=== PATIENT | male | born 2000 | race Hispanic/Latino ===

== ENCOUNTER 2020-05-30 00:48 | Emergency (ER) | payer OTHER, SELFPAY ==
[2020-05-30 02:31] LABS: Urine Blood NEGATIVE (NEG); Urine Glucose NEGATIVE (NEG); Urine Protein NEGATIVE (NEG); Urine Specific Gravity >1.030 (1.005-1.030)
[2020-05-30] MEDS ORDERED: NA CHLORIDE 0.9% 1,000 ML ONE (02:31)
[2020-05-30] MEDS ORDERED: FOLIC ACID 5 MG/ML VIAL ONE (02:32)
[2020-05-30 02:36] LABS: Protime INR 0.94
[2020-05-30 02:37] LABS: Absolute Lymphocytes (CBC) 1.3 K/uL (0.7-4.9); Basophils % 0.2 % (0-1.3); MPV 9.3 fL (7.6-11.3); RBC Red Blood Cell Count 5.06 M/uL (4.33-5.43)
[2020-05-30 02:52] LABS: ALT/SGPT 17 U/L (12-78); AST/SGOT 17 U/L (15-37); Albumin 4.1 g/dL (3.4-5.0); Alkaline Phosphatase 90 U/L (45-117); BUN Blood Urea Nitrogen 14 mg/dL (7-18); Bicarbonate 29 mmol/L (21-32); Bilirubin Direct 0.2 mg/dL (0-0.2); Bilirubin Total 0.5 mg/dL (0.2-1.0); Glucose Level 113 mg/dL (74-106); Magnesium 1.8 mg/dL (1.8-2.4); NT PRO-BNP 25 pg/mL (<125); Potassium 3.5 mmol/L (3.5-5.1); Protein, Total 7.5 g/dL (6.4-8.2); Sodium Level 139 mmol/L (136-145); Troponin (Emerg Dept Use Only) < 0.02 ng/mL (0.0-0.045)
[2020-05-30 02:53] LABS: C-Reactive Protein < 2.90 mg/L (<3.00)
[2020-05-30 03:21] LABS: Barbiturates NEGATIVE (NEGATIVE); Benzodiazepines NEGATIVE (NEGATIVE); Cocaine NEGATIVE (NEGATIVE); METHAMPHETAM NEGATIVE (NEGATIVE); Methadone NEGATIVE (NEGATIVE); Opiates NEGATIVE (NEGATIVE); Phencyclidine NEGATIVE (NEGATIVE); THC Cannibis POSITIVE (NEGATIVE)
--- NOTE | 2020-05-30 03:22 | EDPHYS ---
Physician Documentation [facility] Name: Tucker Serrano Age: 19 yrs Sex: Male : 2000 Arrival Date: 05/30/2020 Time: 00:49 Bed 2 Private MD: SARAHI Physician Andrez Graves HPI: 05/30 01:32 This 19 yrs old Male presents to ER via Wheelchair with complaints of Numbness andrew Of Arm, Shortness Of Breath. 01:32 The patient or guardian complains of left side numb. The complaints affect the left andrew bicep, dorsal aspect of left forearm, left tricep and palmar aspect of left forearm. Context: The problem was sustained at an unknown location. Onset: The symptoms/episode began/occurred 2 hour(s) ago. Treatment prior to arrival includes: no previous treatment. Modifying factors: The symptoms are alleviated by nothing. the symptoms are aggravated by nothing. Associated signs and symptoms: The patient has no apparent associated signs or symptoms. Severity of symptoms: At their worst the symptoms were mild, in the emergency department the symptoms are unchanged. The patient has not experienced similar symptoms in the past. Historical: - Allergies: 01:19 No Known Allergies; dm5 - Home Meds: 01:19 None [Active]; dm5 - PMHx: :19 possibly depression and anxiety but not diagnosed; dm5 - PSHx: :19 None; dm5 - Family history:: not pertinent. ROS: 01:32 Constitutional: Negative for fever, chills, and weight loss, Eyes: Negative for injury, andrew pain, redness, and discharge, ENT: Negative for injury, pain, and discharge, Neck: Negative for injury, pain, and swelling, Cardiovascular: Negative for chest pain, palpitations, and edema, Respiratory: Negative for shortness of breath, cough, wheezing, and pleuritic chest pain, Abdomen/GI: Negative for abdominal pain, nausea, vomiting, diarrhea, and constipation, Back: Negative for injury and pain, : Negative for injury, bleeding, discharge, and swelling, MS/Extremity: Negative for injury and deformity, Skin: Negative for injury, rash, and discoloration, Psych: Negative for depression, anxiety, suicide ideation, homicidal ideation, and hallucinations, Allergy/Immunology: Negative for hives, rash, and allergies, Endocrine: Negative for neck swelling, polydipsia, polyuria, polyphagia, and marked weight changes, Hematologic/Lymphatic: Negative for swollen nodes, abnormal bleeding, and unusual bruising. 01:32 Neuro: Positive for numbness, of the left arm and left leg. Exam: :32 Constitutional: This is a well developed, well nourished patient who is awake, alert, andrew and in no acute distress. Head/Face: Normocephalic, atraumatic. Eyes: Pupils equal round and reactive to light, extra-ocular motions intact. Lids and lashes normal. Conjunctiva and sclera are non-icteric and not injected. Cornea within normal limits. Periorbital areas with no swelling, redness, or edema. ENT: Nares patent. No nasal discharge, no septal abnormalities noted. Tympanic membranes are normal and external auditory canals are clear. Oropharynx with no redness, swelling, or masses, exudates, or evidence of obstruction, uvula midline. Mucous membranes moist. Neck: Trachea midline, no thyromegaly or masses palpated, and no cervical lymphadenopathy. Supple, full range of motion without nuchal rigidity, or vertebral point tenderness. No Meningismus. Chest/axilla: Normal chest wall appearance and motion. Nontender with no deformity. No lesions are appreciated. Cardiovascular: Regular rate and rhythm with a normal S1 and S2. No gallops, murmurs, or rubs. Normal PMI, no JVD. No pulse deficits. Respiratory: Lungs have equal breath sounds bilaterally, clear to auscultation and percussion. No rales, rhonchi or wheezes noted. No increased work of breathing, no retractions or nasal flaring. Abdomen/GI: Soft, non-tender, with normal bowel sounds. No distension or tympany. No guarding or rebound. No evidence of tenderness throughout. Back: No spinal tenderness. No costovertebral tenderness. Full range of motion. Male : Normal genitalia with no discharge or lesions. Skin: Warm, dry with normal turgor. Normal color with no rashes, no lesions, and no evidence of cellulitis. MS/ Extremity: Pulses equal, no cyanosis. Neurovascular intact. Full, normal range of motion. Psych: Awake, alert, with orientation to person, place and time. Behavior, mood, and affect are within normal limits. 01:32 Neuro: Orientation: is normal, appropriate for stated age, no acute changes, Mentation: is normal, appropriate for stated age, no acute changes, Memory: is normal, appropriate for stated age, no acute changes, Cranial nerves: grossly normal, is grossly normal based on the patient's age, no acute changes, Cerebellar function: is grossly normal, is grossly normal based on the patient's age, no acute changes, Motor: is normal, is grossly normal based on the patient's age, Sensation: numbness, that is mild, of the left arm and left leg, Gait: not tested. Deep tendon reflexes are 2+ (normal) in the bilateral brachioradialis, bicep, tricep and patellar and Achilles tendons, Babinski testing is normal. 01:59 ECG was reviewed by the Attending Physician. [facility] Vital Signs: 01:16 BP 120 / 68; Pulse 96; Resp 22; Temp 98.5(TE); Pulse Ox 100% on R/A; Weight 63.5 kg dm5 (R); Height 5 ft. 10 in. (177.80 cm); Pain 0/10; 02:30 BP 125 / 78; Pulse 66; Resp 16; Pulse Ox 100% on R/A; jb4 03:45 BP 112 / 65; Pulse 91; Resp 16; Pulse Ox 100% on R/A; jb4 01:16 Body Mass Index 20.09 (63.50 kg, 177.80 cm) dm5 NIH Stroke Scale Scores: 01:32 NIHSS Score: 1 andrew MDM: 01:21 Patient medically screened. [facility] 01:35 Data reviewed: vital signs, nurses notes, lab test result(s), EKG, radiologic studies, [facility] CT scan, plain films. Data interpreted: monitoring engineer: rate is 96 beats/min, rhythm is regular, Pulse oximetry: on room air. Test interpretation: by ED physician or midlevel provider: ECG, plain radiologic studies. Counseling: I had a detailed discussion with the patient and/or guardian regarding: the historical points, exam findings, and any diagnostic results supporting the discharge/admit diagnosis, lab results, radiology results, the need for outpatient follow up, for definitive care, a family practitioner, a neurologist. 05/30 01:32 Order name: Basic Metabolic Panel [facility] 05/30 01:32 Order name: CBC with Diff [facility] 05/30 01:32 Order name: LFT's [facility] 05/30 01:32 Order name: Magnesium [facility] 05/30 01:32 Order name: NT PRO-BNP; Complete Time: 03:09 [facility] 05/30 01:32 Order name: PT-INR; Complete Time: 03:09 [facility] 05/30 01:32 Order name: Troponin (emerg Dept Use Only); Complete Time: 03:09 [facility] 05/30 01:32 Order name: UDS [facility] 05/30 01:32 Order name: Sed Rate; Complete Time: 03:19 [facility] 05/30 01:32 Order name: CRP; Complete Time: 03:09 [facility] 05/30 01:32 Order name: Basic Metabolic Panel; Complete Time: 03:09 [facility] 05/30 01:32 Order name: CBC with Automated Diff; Complete Time: 03:19 [facility] 05/30 01:32 Order name: Liver (Hepatic) Function; Complete Time: 03:09 [facility] 05/30 01:32 Order name: Magnesium; Complete Time: 03:09 [facility] 05/30 01:32 Order name: XRAY Chest (1 view) [facility] 05/30 01:32 Order name: EKG; Complete Time: 01:33 [facility] 05/30 01:32 Order name: Cardiac monitoring; Complete Time: 02:12 [facility] 05/30 01:32 Order name: EKG - Nurse/Tech; Complete Time: 02:12 [facility] 05/30 01:32 Order name: IV Saline Lock; Complete Time: 02:12 [facility] 05/30 01:32 Order name: Labs collected and sent; Complete Time: 02:12 [facility] 05/30 01:32 Order name: O2 Per Protocol; Complete Time: 02:12 [facility] 05/30 01:32 Order name: O2 Sat Monitoring; Complete Time: 02:12 [facility] 05/30 01:32 Order name: CT Head Brain wo Cont [facility] 05/30 01:32 Order name: CT Head Angio [facility] 05/30 02:00 Order name: CT Neck Angio [facility] 05/30 02:26 Order name: Urine Dipstick--Ancillary (enter results); Complete Time: 02:42 [facility] 05/30 03:38 Order name: CREATININE WHOLE BLOOD EDMS EC:59 Rate is 75 beats/min. Rhythm is regular. QRS [place] is Normal. [place] interval is normal. QRS andrew interval is normal. QT interval is normal. No Q waves. T waves are Normal. No ST changes noted. Clinical impression: Normal ECG and No evidence of ischemia. Interpreted by me. Reviewed by me. Administered Medications: 02:40 Drug: foLIC Acid 1 mg Route: IVPB; Site: right antecubital; jb4 02:45 Follow up: Response: No adverse reaction; IV Status: Completed infusion; IV Intake: [id number] 02:41 Drug: NS 0.9% 1000 ml Route: IV; Rate: 1 bolus; Site: right antecubital; jb4 03:45 Follow up: Response: No adverse reaction; IV Status: Completed infusion; IV Intake: jb4 1000ml 03:17 Drug: Aspirin Chewable Tablet 324 mg Route: PO; jb4 03:51 Follow up: Response: No adverse reaction jb4 Disposition: 05/30/20 03:21 Discharged to Home. Impression: Dyspnea, Weakness - left arm and leg numbness. - Condition is Stable. - Discharge Instructions: Shortness of Breath, Weakness, Shortness of Breath, [id number], Weakness, [id number], Aspirin and Your Heart. - Medication Reconciliation Form, Thank You Letter, Antibiotic Education, Prescription Opioid Use form. - Follow up: Private Physician; When: 2 - 3 days; Reason: Recheck today's complaints, Continuance of care, Re-evaluation by your physician. Follow up: Arturo Harris; When: 2 - 3 days; Reason: Recheck today's complaints, Re-evaluation by your physician. - Problem is new. - Symptoms have improved. NIH Stroke Scale - NIH Stroke Score Date: 05/30/2020 Time: :32 Total Score = 1 1a. Level of Consciousness (LOC) - 0(Alert) 1b. Level of Consciousness (LOC) (Year \T\ Age) - 0(Both) 1c. LOC Commands (Open \T\ Closes Eyes/Train Operations Manager) - 0(Both) 2. Best Gaze (Lateral Gaze Paresis) - 0(Normal) 3. Visual Field Loss - 0(No visual loss) 4. Facial Palsy - 0(Normal) 5a. Left Arm: Motor (10-second hold) - 0(No drift) 5b. Right Arm: Motor (10-second hold) - 0(No drift) 6a. Left Leg: Motor (5-second hold - always test supine) - 0(No drift) 6b. Right Leg: Motor (5-second hold - always test supine) - 0(No drift) 7. Limb Ataxia (finger/nose \T\ heel/lemus - test with eyes open) - 0(Absent) 8. Sensory Loss (pinprick arms/legs/face) - 1(Mild to moderate loss) 9. Best Language: Aphasia (description/naming/reading) - 0(No aphasia) 10. Dysarthria (speech clarity - read or repeat words) - 0(Normal) 11. Extinction and Inattention (visual/tactile/auditory/spatial/personal) - 0(No abnormality) Initials: andrew Signatures: Dispatcher [employer] EDMS Brandee Vee RN RN dmAndrez Marvin MD MD cha Bryson, James, RN RN jb4 Corrections: (The following items were deleted from the chart) 03:52 03:21 05/30/2020 03:21 Discharged to Home. Impression: Dyspnea; Weakness - left jb4 arm and leg numbness. Condition is Stable. Discharge Instructions: Shortness of Breath, Weakness, Shortness of Breath, [id number], Weakness, Wane-ug-Vucl, Aspirin and Your Heart. Forms are Medication Reconciliation Form, Thank You Letter, Antibiotic Education, Prescription Opioid Use. Follow up: Private Physician; When: 2 - 3 days; Reason: Recheck today's complaints, Continuance of care, Re-evaluation by your physician. Follow up: Arturo Harris; When: 2 - 3 days; Reason: Recheck today's complaints, Re-evaluation by your physician. Problem is new. Symptoms have improved. andrew
--- NOTE | 2020-05-30 03:22 | ER ---
Nurse's Notes [facility] Name: Tucker Serrano Age: 19 yrs Sex: Male : 2000 Arrival Date: 05/30/2020 Time: 00:49 Bed 2 Private MD: Diagnosis: Dyspnea;Weakness-left arm and leg numbness Presentation: 05/30 01:16 Chief complaint: Patient states: I feel like it is hard to stay awake. I was eating dm5 ramen noodles and my left side started going numb. It happened at like 12:30 tonight. I felt like my heart was beating really fast and I started breathing really fast. Coronavirus screen: Client denies travel out of the [place] in the last 14 days. At this time, the client does not indicate any symptoms associated with coronavirus-19. Ebola Screen: Patient negative for fever greater than or equal to 101.5 degrees Fahrenheit, and additional compatible Ebola Virus Disease symptoms Patient denies exposure to infectious person. Patient denies travel to an Ebola-affected area in the 21 days before illness onset. No symptoms or risks identified at this time. Initial Sepsis Screen: Does the patient meet any 2 criteria? No. Patient's initial sepsis screen is negative. Does the patient have a suspected source of infection? No. Patient's initial sepsis screen is negative. Risk Assessment: Do you want to hurt yourself or someone else? Patient reports no desire to harm self or others. Onset of symptoms was May 30, 2020. 01:16 Method Of Arrival: Wheelchair dm5 01:16 Acuity: DELPHINE 3 dm5 Historical: - Allergies: 01:19 No Known Allergies; dm5 - Home Meds: 01:19 None [Active]; dm5 - PMHx: 01:19 possibly depression and anxiety but not diagnosed; dm5 - PSHx: 01:19 None; dm5 - Family history:: not pertinent. Screenin:30 Abuse screen: Denies threats or abuse. Nutritional screening: No deficits noted. jb4 Tuberculosis screening: No symptoms or risk factors identified. Fall Risk None identified. Assessment: 01:30 General: Appears in no apparent distress. comfortable, Behavior is calm, cooperative, jb4 appropriate for age. Pain: Denies pain. Neuro: Level of Consciousness is awake, alert, obeys commands, Oriented to person, place, time, situation. Cardiovascular: Patient's skin is warm and dry. Rhythm is sinus rhythm. Respiratory: Airway is patent Respiratory effort is even, unlabored. GI: No signs and/or symptoms were reported involving the gastrointestinal system. : No signs and/or symptoms were reported regarding the genitourinary system. EENT: No signs and/or symptoms were reported regarding the EENT system. Derm: Skin is intact, Skin is pink, warm \T\ dry. Musculoskeletal: Circulation, motion, and sensation intact. Range of motion: intact in all extremities. 02:30 Reassessment: Patient appears in no apparent distress at this time. Patient and/or jb4 family updated on plan of care and expected duration. Pain level reassessed. Patient is alert, oriented x 3, equal unlabored respirations, skin warm/dry/pink. 03:49 Reassessment: Patient appears in no apparent distress at this time. Patient and/or jb4 family updated on plan of care and expected duration. Pain level reassessed. Patient is alert, oriented x 3, equal unlabored respirations, skin warm/dry/pink. Vital Signs: 01:16 BP 120 / 68; Pulse 96; Resp 22; Temp 98.5(TE); Pulse Ox 100% on R/A; Weight 63.5 kg dm5 (R); Height 5 ft. 10 in. (177.80 cm); Pain 0/10; 02:30 BP 125 / 78; Pulse 66; Resp 16; Pulse Ox 100% on R/A; jb4 03:45 BP 112 / 65; Pulse 91; Resp 16; Pulse Ox 100% on R/A; jb4 01:16 Body Mass Index 20.09 (63.50 kg, 177.80 cm) dm5 NIH Stroke Scale Scores: 01:32 NIHSS Score: 1 [facility] ED Course: 00:49 Patient arrived in ED. cl3 01:19 Triage completed. dm5 01:21 Antoni Shell, RODRIGO is Primary Nurse. jb4 01:21 Andrez Graves MD is Attending Physician. [facility] 01:30 Patient has correct armband on for positive identification. Placed in gown. Bed in low jb4 position. Call light in reach. Side rails up X 1. Pulse ox on. NIBP on. 02:05 Initial lab(s) drawn, by me, sent to lab. Inserted saline lock: 20 gauge in right jb4 antecubital area, using aseptic technique. Blood collected. 02:09 XRAY Chest (1 view) In Process Unspecified. EDMS 02:33 CT Head Brain wo Cont In Process Unspecified. EDMS 02:33 CT Head Angio In Process Unspecified. EDMS 02:34 CT Neck Angio In Process Unspecified. EDMS 03:21 Arturo Harris MD is Referral Physician. andrew 03:45 No provider procedures requiring assistance completed. IV discontinued, intact, jb4 bleeding controlled, No redness/swelling at site. Pressure dressing applied. Administered Medications: 02:40 Drug: foLIC Acid 1 mg Route: IVPB; Site: right antecubital; jb4 02:45 Follow up: Response: No adverse reaction; IV Status: Completed infusion; IV Intake: [id number] 02:41 Drug: NS 0.9% 1000 ml Route: IV; Rate: 1 bolus; Site: right antecubital; jb4 03:45 Follow up: Response: No adverse reaction; IV Status: Completed infusion; IV Intake: jb4 1000ml 03:17 Drug: Aspirin Chewable Tablet 324 mg Route: PO; jb4 03:51 Follow up: Response: No adverse reaction jb4 Intake: 02:45 IV: 10ml; Total: 10ml. jb4 03:45 IV: 1000ml; Total: 1010ml. jb4 Outcome: 03:21 Discharge ordered by . andrew 03:45 Discharged to home via wheelchair. jb4 03:45 Condition: stable 03:45 Discharge instructions given to patient, Instructed on discharge instructions, follow up and referral plans. Demonstrated understanding of instructions, follow-up care. 03:52 Patient left the ED. jb4 NIH Stroke Scale - NIH Stroke Score Date: 05/30/2020 Time: 01:32 Total Score = 1 1a. Level of Consciousness (LOC) - 0(Alert) 1b. Level of Consciousness (LOC) (Year \T\ Age) - 0(Both) 1c. LOC Commands (Open \T\ Closes Eyes/Almond Grinder) - 0(Both) 2. Best Gaze (Lateral Gaze Paresis) - 0(Normal) 3. Visual Field Loss - 0(No visual loss) 4. Facial Palsy - 0(Normal) 5a. Left Arm: Motor (10-second hold) - 0(No drift) 5b. Right Arm: Motor (10-second hold) - 0(No drift) 6a. Left Leg: Motor (5-second hold - always test supine) - 0(No drift) 6b. Right Leg: Motor (5-second hold - always test supine) - 0(No drift) 7. Limb Ataxia (finger/nose \T\ heel/lemus - test with eyes open) - 0(Absent) 8. Sensory Loss (pinprick arms/legs/face) - 1(Mild to moderate loss) 9. Best Language: Aphasia (description/naming/reading) - 0(No aphasia) 10. Dysarthria (speech clarity - read or repeat words) - 0(Normal) 11. Extinction and Inattention (visual/tactile/auditory/spatial/personal) - 0(No abnormality) Initials: andrew Signatures: Dispatcher [employer] Brandee Rodriguez RN RN dm5 Andrez Graves MD MD cha Bryson, James, RN RN jb4 Tanvir De La Cruz cl3
[2020-05-30] MEDS ORDERED: ASPIRIN 81 MG CHEWABLE TABLET ONE (03:26)
[2020-05-30 03:57] VITALS: TEMP 98.5; O2SAT 100
[2020-05-30 04:00] VITALS: BP 112/65
--- NOTE | 2020-05-30 09:50 | RAD REPORT ---
EXAM DESCRIPTION: RAD - Chest Single View - 05/30/2020 2:06 am CLINICAL HISTORY: COUGH, tachycardia, tachypnea COMPARISON: Single-view chest June 2013 TECHNIQUE: AP portable chest image was obtained 05/30/2020 2:06 am . FINDINGS: Lungs are clear. Heart and vasculature are normal. No measurable pleural effusion and no p neumothorax. No acute bony abnormality seen. No acute aortic findings suspected. IMPRESSION: No acute cardiopulmonary process. No significant change from comparison study.
--- NOTE | 2020-05-30 14:23 | EKG ---
Test Date: 2020-05-30 Test Time: 01:49:07 Skiff Operator: OMAR MEASUREMENT RESULTS: Intervals: Rate: 75 [place]: 142 QRSD: 100 QT: 368 QTc: 410 [place]: P: 31 [place]: 142 QRS: 89 T: 28 INTERPRETIVE STATEMENTS: Normal sinus rhythm Normal ECG No previous ECG available for comparison Electronically Signed On 05-30-20 14:22:38 ELECTRONIC GLUING MACHINE OPERATOR by Giancarlo Falcon
--- NOTE | 2020-05-30 22:08 | RAD REPORT ---
EXAM DESCRIPTION: CT - Neck Angio - 05/30/2020 9:33 am CLINICAL HISTORY: NUMBNESS COMPARISON: CT head without contrast May 30, 2020 TECHNIQUE: Multiple helical axial tomographic images were obtained of the head and neck following ad ministration of intravenous contrast per angiographic protocol. Coronal and sagittal reformatted imag es were obtained. This exam was performed according to our departmental dose-optimization program, wh ich includes automated exposure control, adjustment of the mA and/or kV according to patient size and /or use of iterative reconstruction technique. FINDINGS: Head: Intracranial segments of the bilateral internal carotid arteries appear patent without significant st enosis or occlusion. Bilateral anterior and middle cerebral arteries appear patent without significan t stenosis or occlusion. Intracranial segments of the bilateral vertebral arteries, basilar artery, a nd posterior cerebral arteries appear patent without significant stenosis or occlusion. No evidence o f intracranial aneurysm. There is no acute intracranial hemorrhage. No mass. No midline shift. No ventriculomegaly. Bro-white matter differentiation is maintained. Paranasal sinuses are clear. Mastoid air cells and middle ear spaces are clear. Orbits and orbital co ntents are unremarkable. Osseous structures are unremarkable. Surrounding soft tissues are unremarkable. Neck: Carotid and vertebral arterial vasculature of the neck appears patent without stenosis stenosis or oc clusion. Thyroid gland appears unremarkable. Salivary glands appear unremarkable. No evidence of adenopathy. R etropharyngeal space appears normal. Epiglottis appears normal. Larynx and vocal folds appear unremar kable. Visualized lungs are clear. Osseous structures are unremarkable. IMPRESSION: No evidence of significant arterial stenosis or occlusion within the head or neck. Electronically signed by: Eliel Pardo MD 05/30/2020 3:36 AM [facility] Due to temporary technical issues with the PACS/Fluency reporting system, reports are being signed by the in house radiologists without review as a courtesy to insure prompt reporting. The interpreting radiologist is fully responsible for the content of the report.
--- NOTE | 2020-05-30 22:10 | RAD REPORT ---
EXAM DESCRIPTION: CT - Head Brain Wo Cont - 05/30/2020 9:32 am CLINICAL HISTORY: Dizziness; Numbness TECHNIQUE: Contiguous axial CT images obtained through the brain without IV contrast. Coronal and sa gittal reformatted images were provided. This exam was performed according to our departmental dose-optimization program, which includes autom ated exposure control, adjustment of the mA and/or kV according to patient size and/or use of iterati ve reconstruction technique. COMPARISON: None available for comparison FINDINGS: Brain: No significant white matter changes. No focal mass effect. Bro-white matter differ entiation is within normal limits. No hemorrhage. Ventricles: No ventriculomegaly or midline shift. Extra-axial spaces: No extra-axial collection or hemorrhage. Paranasal sinuses and mastoid air cells: Well-aerated Vessels: Unremarkable Bones: Unremarkable Soft tissues: Unremarkable IMPRESSION: No acute intracranial or extra-axial abnormality. Electronically signed by: Laurel Harrison MD 05/30/2020 2:46 AM PLANNING DIVISION SUPERINTENDENT Due to temporary technical issues with the PACS/Fluency reporting system, reports are being signed by the in house radiologists without review as a courtesy to insure prompt reporting. The interpreting radiologist is fully responsible for the content of the report.
--- NOTE | 2020-05-30 22:11 | RAD REPORT ---
EXAM DESCRIPTION: CT - Head angio - 05/30/2020 9:33 am CLINICAL HISTORY NUMBNESS COMPARISON: CT head without contrast May 30, 2020 TECHNIQUE: Multiple helical axial tomographic images were obtained of the head and neck following ad ministration of intravenous contrast per angiographic protocol. Coronal and sagittal reformatted imag es were obtained. This exam was performed according to our departmental dose-optimization program, wh ich includes automated exposure control, adjustment of the mA and/or kV according to patient size and /or use of iterative reconstruction technique. FINDINGS: Head: Intracranial segments of the bilateral internal carotid arteries appear patent without significant st enosis or occlusion. Bilateral anterior and middle cerebral arteries appear patent without significan t stenosis or occlusion. Intracranial segments of the bilateral vertebral arteries, basilar artery, a nd posterior cerebral arteries appear patent without significant stenosis or occlusion. No evidence o f intracranial aneurysm. There is no acute intracranial hemorrhage. No mass. No midline shift. No ventriculomegaly. Bro-white matter differentiation is maintained. Paranasal sinuses are clear. Mastoid air cells and middle ear spaces are clear. Orbits and orbital co ntents are unremarkable. Osseous structures are unremarkable. Surrounding soft tissues are unremarkable. Neck: Carotid and vertebral arterial vasculature of the neck appears patent without stenosis stenosis or oc clusion. Thyroid gland appears unremarkable. Salivary glands appear unremarkable. No evidence of adenopathy. R etropharyngeal space appears normal. Epiglottis appears normal. Larynx and vocal folds appear unremar kable. Visualized lungs are clear. Osseous structures are unremarkable. IMPRESSION: No evidence of significant arterial stenosis or occlusion within the head or neck. Electronically signed by: Eliel Pardo MD 05/30/2020 3:36 AM DISPATCHER CLERK Due to temporary technical issues with the PACS/Fluency reporting system, reports are being signed by the in house radiologists without review as a courtesy to insure prompt reporting. The interpreting radiologist is fully responsible for the content of the report.
== END 2020-05-30 03:52 | disposition home or self-care (01) ==
LOC: ER 00:48
DX: R20.0 Anesthesia of skin (principal); R29.898 Other symptoms and signs involving the musculoskeletal system; R06.02 Shortness of breath
CPT/HCPCS: 36415; 70450; 70496; 70498; 71045; 80048; 80076; 80307; 81003; 82565; 83735; 83880; 84484; 85025; 85610; 85652; 86140; 93005; 96361; 96374; 99284; J7030; Q9967